=== PATIENT | female | born 1985 | race Caucasian/White ===

== ENCOUNTER → 2017-08-22 | Outpatient (REF) | payer OTHER ==
[~2017-08-22] MED LIST: AMOX-559 PO; BENZ200C15 PO; FLUT16SP19 NS; LEVO750T44 PO; MULT-885 PO
[2017-08-22 17:42] LABS: PLATELET COUNT, AUTOMATED 239 K/uL (150-450)
== END ==
LOC: ZZSENDIN 17:18
PROVIDERS: ATTEND Obstetrics & Gynecology
DX: Z36.89 Encounter for other specified antenatal screening (principal); Z3A.01 Less than 8 weeks gestation of pregnancy
CPT/HCPCS: 81001; 85007; 85027; 86592; 86762; 86850; 86900; 86901; 87088; 87340

== ENCOUNTER → 2017-11-10 | Outpatient (CLI) | payer OTHER ==
[~2017-11-10] MED LIST changes: +HYDR-6045 RC; +PREN-127 PO
--- NOTE | 2017-11-10 16:15 | RADIOLOGY IMAGING REPORT ---
FACILITY: [facility] - [place] PATIENT NAME: Sonal Bender : 1985 MR: [id number] V: [id number] EXAM DATE: ORDERING PHYSICIAN: KATHERYN GAONA TECHNOLOGIST: Location: [facility] Patient: Sonal Bender : 1985 Visit/Account:[id number] Date of Sevice: 11/10/2017 OB ANATOMICAL SURVEY HISTORY: Screening, twins COMPARISON: None. TECHNIQUE: Transabdominal imaging was performed for assessment of the twin fetus and maternal pelvic structures. Transvaginal imaging was not performed. FINDINGS: Intrauterine gestations: Two. Membrane Fetus A and B: Yes. Uterus: Gravid, otherwise unremarkable. Maternal adnexa/ovaries: Grossly unremarkable, ovaries not visualized.. Cervix: Grossly long and closed. FETUS A: Location/position: At the start of the examination fetus a was in transverse presentation with the fe marisel head towards the maternal right. At the end of the examination. Is a was in transverse presenta tion with the head towards the maternal left. heart rate: 144 bpm. Amniotic fluid volume: 15.5; MVP 4.4 cm. Placenta: Anterior. Gestational Parameters BPD: 4.25 cm, 76th percentile HC: 15.26 cm, 41st percentile AC: 12.28 cm, 35th percentile FL: 2.58 cm, 28th percentile Average ultrasound age (AUA): 18 weeks/ two days Estimated age based on LMP: 18 weeks/ two days LMP is 26 percentile Estimated weight (EFW): 217 grams +/- 32 grams EFW for LMP: Anatomic Survey: Intracranial structures, lips and palate, 4-chamber heart, ventricular outflow tracts, stomach, kidne ys, urinary bladder, spine, 3-vessel cord and cord insertion are unremarkable. Two upper and two lowe r extremities visualized. Only transverse images of the cervical thoracic lumbar spine and sacrum co uld be obtained at this time Fetus B: Location/position: Transverse presentation with the head on the maternal right. heart rate: 149 bpm. Amniotic fluid volume: Normal; MAGI 13.1 cm; MVP 3.4 cm. Placenta: Posterior. Gestational Parameters BPD: 3.93 cm, 36 percentile HC: 3.98 cm, 26 percentile AC: 12.15 cm, 31st percentile FL: 2.67 cm, 38th percentile Average ultrasound age (AUA): 18 weeks/ zero days Estimated age based on LMP: 18 weeks/ two days LMP is 27th percentile Estimated weight (EFW): 218 grams +/- 32 grams EFW for LMP: Anatomic Survey: Intracranial structures, lips and palate, 4-chamber heart, ventricular outflow tracts, stomach, kidne ys, urinary bladder, spine, 3-vessel cord and cord insertion are unremarkable. Two upper and two lowe r extremities visualized. IMPRESSION: Twin as detailed above. Estimated gestational age by measurements for twin A 18 weeks and two days and for twin B 18 weeks Report Dictated By: Shaina Guerin MD at 11/10/2017 4:00 PM Report E-Signed By: Shaina Guerin MD at 11/10/2017 4:11 PM ELIEN:EMERITA
== END ==
LOC: RAD 08:03
PROVIDERS: ATTEND Obstetrics & Gynecology
DX: Z02.9 Encounter for administrative examinations, unspecified (principal)
CPT/HCPCS: 76811

== ENCOUNTER → 2017-11-13 | Outpatient (CLI) | payer OTHER | LOC: RAD 09:00 | PROVIDERS: ATTEND Obstetrics & Gynecology | DX: Z02.9 Encounter for administrative examinations, unspecified (principal) ==

== ENCOUNTER → 2018-01-07 | Outpatient (CLI) | payer OTHER ==
[~2018-01-07] MED LIST changes: +DIPH0.5D12 IM
[2018-01-07 15:21] LABS: PLATELET COUNT, AUTOMATED 194 K/uL (150-450)
== END ==
LOC: LAB 08:05
PROVIDERS: ATTEND Obstetrics & Gynecology
DX: O09.90 Supervision of high risk pregnancy, unspecified, unspecified trimester (principal)
CPT/HCPCS: 36415; 82950; 85025

== ENCOUNTER → 2018-01-13 | Outpatient (CLI) | payer OTHER ==
[~2018-01-13] MED LIST changes: +BLOO-1511 MC; +BLOO-960 MC
== END ==
LOC: LAB 08:41
PROVIDERS: ATTEND Obstetrics & Gynecology
DX: O99.810 Abnormal glucose complicating pregnancy (principal)
CPT/HCPCS: 36415; 82951; 82952

== ENCOUNTER 2018-01-15 11:06 | Outpatient (RCR) | payer OTHER ==
[~2018-01-15] VITALS: Ht 162.6 cm; Wt 65.3 kg
--- NOTE | 2018-01-15 16:13 | Medical Nutrition Therapy ---
Nutrition Anthropometrics Height (Inches): 64 Weight (Pounds): 144 (120 pre- PG) Jim Nutrition Score: Jim Nutrition Risk Score: Dietary Referral Nutrition Risk Factors: Nutrition Risk Comment: Nutrition/Food History Breakfast: omelet, sausage Lunch: beef , mash pot, veg Dinner: ribs ,salad Snacks: usually didn't snack Nutritional Education Nutrition Education Topic: Diabetic Nutrition Learning Readiness: Eager, Interested Teaching Methods: Discussion, Handout, Demonstration Response to Teaching: Verbalize understanding Teaching Recipient: Patient Nutrition Counseling: Met with pt, gave education on What is gestational diabetes, effect on baby, potential for T2 post delivery. Provided nutrtion education including glycemic repsonse/index. Pt is PG with twins. Set up a meal plan recommending 30g CHO at breakfast, 30g CHO for morning, afternoon and night snacks, and 45-60g CHO for lunch and dinner. pt has not been snacking. Discussed importance of getting adequate kcal , especially with twins and stress importance that pt snack between meals. Taught pt how to use a glucometer,acceptable BG ranges, and track her BG levels. Nutrition Monitoring & Eval RD Patient Assessment Time: [address] Assessment Type: RD Education Nutritional Comment: Provided 60 minute diabetic education focusing on what is gest DM, nutrtion and glucometer teaching. Copies To Copies to: WYATT JOHNSON DO ; EDWARDO CERNA Jan 15, 2018 16:08
[2018-01-27] MEDS ORDERED: METF-450 PO (09:41)
[2018-02-03] MEDS ORDERED: NPH,100I SQ (15:53)
== END 2018-02-19 ==
LOC: DIET 11:06
PROVIDERS: ATTEND Student in an Organized Health Care Education/Training Program
DX: O24.419 Gestational diabetes mellitus in pregnancy, unspecified control (principal)
CPT/HCPCS: G0108 ×2

== ENCOUNTER → 2018-01-22 | Outpatient (CLI) | payer OTHER ==
[~2018-01-22] MED LIST changes: +METF-450 PO
--- NOTE | 2018-01-23 07:51 | RADIOLOGY IMAGING REPORT ---
FACILITY: [facility] - [place], [place] PATIENT NAME: Sonal Bender : 1985 MR: [id number] V: [id number] EXAM DATE: ORDERING PHYSICIAN: KATHERYN GAONA TECHNOLOGIST: Location: [facility] [place] Patient: Sonal Bender : 1985 Visit/Account:[id number] Date of Sevice: 01/22/2018 OB Ultrasound followup twins HISTORY: Evaluate growth and MAGI COMPARISON STUDIES: Ultrasound dated November 10, 2017. FINDINGS: There is a diamniotic with 2 intrauterine gestations. Twin A: Placenta: Posterior/fundal without previa presentation: Breech and to the maternal left heart rate: 136 bpm Largest amniotic fluid pocket 5.4 cm Gestational Parameters: BPD: 7.12 cm 28 weeks and 5 days HC: 25.92 cm 28 weeks and 2 days AC: 24.37 cm 28 weeks and 5 days FL: 5.12 cm 27 weeks and 3 days Average ultrasound age (AUA): 28 weeks and 2 days Estimated gestational age based on LMP datin weeks and 5 days MAGALY: 04/14/2018 based on today's ultrasound age Estimated weight (EFW): 1185 g +/-174 g EFW: 20th percentile for LMP dating Twin B: Placenta: Anterior/fundal without previa presentation: Vertex and to the maternal right heart rate: 152 bpm Largest amniotic fluid pocket 5.1 cm Gestational Parameters: BPD: 6.98 cm 28 weeks and 1 day HC: 25.77 cm 28 weeks and 1 day AC: 23.51 cm 27 weeks and 6 days FL: 5.20 cm 27 weeks and 6 days Average ultrasound age (AUA): 28 weeks and 0 days Estimated gestational age based on LMP datin weeks and 5 days MAGALY: 04/16/2018 based on today's ultrasound age Estimated weight (EFW): 1133 g +/-166 g EFW: 12th percentile for LMP dating IMPRESSION: 1. Twin with estimated ultrasound age of 28 weeks and 2 days for twin A (breech and to the maternal left) and estimated ultrasound age of 28 weeks and 0 days for twin B (vertex and to the mate rnal right). 2. Estimated weight for twin A is at the 20th percentile. 3. Estimated weight for twin B is at the 12th percentile. Report Dictated By: Janak Soria MD at 01/23/2018 7:41 AM Report E-Signed By: Janak Soria MD at 01/23/2018 7:48 AM WSN:[id number]
== END ==
LOC: RAD 07:58
PROVIDERS: ATTEND Student in an Organized Health Care Education/Training Program
DX: Z02.9 Encounter for administrative examinations, unspecified (principal)

== ENCOUNTER → 2018-02-19 | Outpatient (CLI) | payer OTHER ==
[~2018-02-19] MED LIST changes: +NPH,100I SQ
--- NOTE | 2018-02-19 15:53 | RADIOLOGY IMAGING REPORT ---
FACILITY: [facility] PATIENT NAME: Sonal Bender : 1985 MR: [id number] V: [id number] EXAM DATE: ORDERING PHYSICIAN: KATHERYN GAONA TECHNOLOGIST: Location: [facility] Patient: Sonal Bender : 1985 Visit/Account:[id number] Date of Sevice: 02/19/2018 [facility] OB LIMITED HISTORY: (, Growth check COMPARISON: January 22, 2018 TECHNIQUE: Transabdominal imaging was performed for assessment of the twin fetus and maternal pelvic structures. Transvaginal imaging was not performed. FINDINGS: Intrauterine gestations: Two. Membrane Fetus A and B: Yes. Uterus: Gravid, otherwise unremarkable. Maternal adnexa/ovaries: Grossly unremarkable, ovaries not visualized.. Cervix: Not evaluated. FETUS A: Location/position: Fetus a is in breech presentation with its spine to the maternal left and head and face pointing cephalad. heart rate: 163 bpm. Amniotic fluid volume: 14.96; MVP 5.62 cm. Placenta: Difficult to evaluate on provided images although the anterior placenta is likely associat ed with fetus a Gestational Parameters BPD: 7.97 cm, 22nd percentile HC: 29.02 cm, 5th percentile AC: 28.9 cm, 56th percentile FL: 6.09 cm, 14th percentile Average ultrasound age (AUA): 32 weeks/ two days Estimated age based on LMP: 32 weeks/ five days, Estimated weight (EFW): 1957 grams +/- 286 grams EFW for LMP: 30 percentile Anatomic Survey: Not performed Fetus B: Location/position: Breech presentation with the spine towards the maternal right with the head cephalad but face pointing down. heart rate: 139 bpm. Amniotic fluid volume: ; MAGI 18.83 cm; MVP 5.32 cm. Placenta: Difficult to evaluate on provided images although the posterior placenta is likely associa cristobal with fetus B Gestational Parameters BPD: 7.89 cm, 50th percentile HC: 29.13 cm, 70 percentile AC: 27.28 cm, 56th percentile FL: 6.42 cm, 14th percentile Average ultrasound age (AUA): 32 weeks/ one days Estimated age based on LMP: 32 weeks/ five days Estimated weight (EFW): 1884 grams +/- 275 grams EFW for LMP: 21st percentile Anatomic Survey: Not performed IMPRESSION: Twin with twin A in breech presentation with the spine towards the maternal left and the head and face are pointing cephalad. Estimated gestational age for twin A by measurements is 32 weeks and two days and estimated weight for twin A is 1957 g in the 30th percentile Twin B is in breech presentation with the spine towards the maternal right with a head cephalad but the face pointing down. The estimated gestational age by measurements for twin B is 32 weeks an d one day. Estimated weight for twin B is 1884 g in the 21st percentile Report Dictated By: Shaina Guerin MD at 02/19/2018 3:30 PM Report E-Signed By: Shaina Guerin MD at 02/19/2018 3:49 PM JACKLYN:EMERITA
== END ==
LOC: RAD 09:31
PROVIDERS: ATTEND Obstetrics & Gynecology
DX: Z02.9 Encounter for administrative examinations, unspecified (principal)
CPT/HCPCS: 76812

== ENCOUNTER → 2018-03-03 | Outpatient (CLI) | payer OTHER | LOC: LAB 16:39 | PROVIDERS: ATTEND Obstetrics & Gynecology | DX: Z34.93 Encounter for supervision of normal pregnancy, unspecified, third trimester (principal) | CPT/HCPCS: 87081 ==

== ENCOUNTER → 2018-03-09 | Outpatient (CLI) | payer OTHER ==
--- NOTE | 2018-03-09 16:40 | RADIOLOGY IMAGING REPORT ---
FACILITY: [facility] - [place] PATIENT NAME: Sonal Bender : 1985 MR: [id number] V: [id number] EXAM DATE: ORDERING PHYSICIAN: KATHERYN GAONA TECHNOLOGIST: Location: [facility] Patient: Sonal Bender : 1985 Visit/Account:[id number] Date of Sevice: 03/09/2018 OB >14 WEEKS EA ADTL GEST HISTORY: Follow-up twins COMPARISON: February 19, 2018 TECHNIQUE: Transabdominal imaging was performed for assessment of the twin fetus and maternal pelvic structures. Transvaginal imaging was not performed. FINDINGS: Intrauterine gestations: Two. Membrane Fetus A and B: Yes. Uterus: Gravid, otherwise unremarkable. Maternal adnexa/ovaries: Grossly unremarkable, ovaries not visualized.. Cervix: Not evaluated. FETUS A: Location/position: Breech. heart rate: 153 bpm. Amniotic fluid volume: 14.82 cm; MVP 5.05 cm. Placenta: Anterior. Gestational Parameters BPD: 8.28 cm, 8th percentile HC: 30.40 cm, 2nd percentile AC: 29.84 cm, 18th percentile FL: 6.95 cm, 53rd percentile Average ultrasound age (AUA): 34 weeks/ two days Estimated age based on LMP: 35 weeks/ two days Estimated weight (EFW): 2393 grams +/- 350 grams EFW for LMP: 22% Anatomic Survey: Anatomic survey not performed. Fetus B: Location/position: Breech. heart rate: 156 bpm. Amniotic fluid volume: Normal; MAGI 17.81 cm; MVP 9.94 cm. Placenta: Posterior. Gestational Parameters BPD: 8.08 cm, less than 2nd percentile HC: 31 cm, 9th percentile AC: 29.37 cm, 10th percentile FL: 6.42 cm, 5th percentile Average ultrasound age (AUA): 33 weeks/ four days Estimated age based on LMP: 35 weeks/ two days Estimated weight (EFW): 2174 grams +/- 318 grams EFW for LMP: 8% Anatomic Survey: Anatomic survey not performed IMPRESSION: Twin gestation, both in breech presentation. Estimated gestational age by measurements for twin A is 34 weeks and two days. Estimated weight for twin A is 2393 g, 22nd percentile Estimated gestational age for twin B by measurements 33 weeks and four days. Estimated weight for twin B 2174 g, 8th percentile Report Dictated By: Shaina Guerin MD at 03/09/2018 4:17 PM Report E-Signed By: Shaina Guerin MD at 03/09/2018 4:36 PM WSN:[email or web address]
== END ==
LOC: US 01:12
PROVIDERS: ATTEND Obstetrics & Gynecology
DX: Z02.9 Encounter for administrative examinations, unspecified (principal)
CPT/HCPCS: 76805; 76816

== ENCOUNTER → 2018-03-17 | Outpatient (CLI) | payer OTHER ==
[~2018-03-17] MED LIST changes: +BET6I IM ONLY
--- NOTE | 2018-03-17 21:45 | RADIOLOGY IMAGING REPORT ---
FACILITY: [facility] - [place] PATIENT NAME: Sonal Bender : 1985 MR: [id number] V: [id number] EXAM DATE: ORDERING PHYSICIAN: KATHERYN GAONA TECHNOLOGIST: Location: Patient: Sonal Bender : 1985 Visit/Account:[id number] Date of Sevice: 03/17/2018 OB LIMITED HISTORY: twin . Evaluate amniotic fluid Additional history: EGA by LMP 36 weeks and three days COMPARISON: Comparison ultrasound 03/09/2018 FINDINGS: Thick membrane the twins with two placentas. Dichorionic diamniotic twin . Twin A: Breech with heart rate 143 beats per minute. Placenta anterior. Amniotic fluid measur es 15.0 cm by four-quadrant measurement with deepest pocket 4.9 cm. This is very similar to the prev ious study. Twin B: Breech with heart rate 149 bpm. Placenta is posterior. Amniotic fluid measures 13.2 c m by four-quadrant measurement with deepest pocket 5.3 cm. This compares with previous four-quadrant measurement of 17.8 cm. IMPRESSION: Dichorionic diamniotic twin . Twins are in breech presentation. Amniotic fluid within norm al range for both twin A and twin B. Report Dictated By: Khang Veras MD at 03/17/2018 9:31 PM Report E-Signed By: Khang Veras MD at 03/17/2018 9:41 PM WSN:[id number]
== END ==
LOC: US 01:06
PROVIDERS: ATTEND Obstetrics & Gynecology
DX: O30.009 Twin pregnancy, unspecified number of placenta and unspecified number of amniotic sacs, unspecified trimester (principal); O09.90 Supervision of high risk pregnancy, unspecified, unspecified trimester; O24.419 Gestational diabetes mellitus in pregnancy, unspecified control
CPT/HCPCS: 76815

== ENCOUNTER 2018-03-24 05:01 | Inpatient (IN) | payer OTHER ==
[~2018-03-24] VITALS: Ht 162.6 cm; Wt 78.5 kg
[2018-03-24] VITALS (26 sets, daily range): BP systolic 108–144; BP diastolic 48–98
[2018-03-24] MEDS ORDERED: ceFAZolin(*) 2GM/D5W 50ML 50 ML IVPB ONE (05:02)
[2018-03-24] MEDS ORDERED: METOCLOPRAMIDE 10 MG/2 ML SDV IVP ONE (05:05)
[2018-03-24] MEDS ORDERED: FAMOTIDINE 20 MG/50 ML PREMIX IVPB ONE (05:05)
[2018-03-24] MEDS ORDERED: CITRIC ACID/SOD CITRATE 30 ML PO ONE (05:05)
[2018-03-24] MEDS: LR(*) 1000 ML BAG 1,000 ML IV SCH ×3 (05:49→18:18)
[2018-03-24 06:21] LABS: PLATELET COUNT, AUTOMATED 132 K/uL (150-450)
[2018-03-24] MEDS ORDERED: MORPHINE PF 5 MG/10 ML AMP ONE (06:56)
[2018-03-24] MEDS ORDERED: fentaNYL CITR 100 MCG/2 ML AMP ONE (06:56)
[2018-03-24] MEDS ORDERED: OXYTOCIN 10 UNIT/ML SDV ONE (06:56)
[2018-03-24] MEDS ORDERED: KETOROLAC 30 MG/ML VIAL ONE (06:56)
[2018-03-24] MEDS ORDERED: ONDANSETRON 4 MG/2 ML VIAL IVP ONE (07:05)
[2018-03-24] MEDS ORDERED: ONDANSETRON 4 MG/2 ML VIAL ONE (07:14)
--- NOTE | 2018-03-24 07:35 | History & Physical ---
History of Present Illness EDC per LMP: Apr 11, 2018 Estimated Gestational Age: 37.4 Chief Complaint Scheduled History of Present Illness 33yo at 37w4d presents for scheduled for di:di twins. She reports FM. Denies preeclampsia symptom. She is feeling well. No concerns. PNC by IMG. c/b di:di twins and GDMA2 (insulin 7U qHS). History Patient's Blood Type: A Positive Rubella Status: Immune Group B Strep Screen: Negative Obstetrical History: G1: SAB G2: Current Past Medical History: See PNR Allergies: Coded Allergies: codeine (Unverified Allergy, Intermediate, NAUSEA/VOMITING, 03/01/16) mold (Unverified Allergy, Unknown, 09/11/17) ragweed pollen (Unverified Allergy, Unknown, 09/11/17) Uncoded Allergies: dander (Allergy, Mild, 09/12/17) Social History: No T/E/D. . Family History: FH: diabetes mellitus FATHER PATERNAL GRANDFATHER, FH: hyperlipidemia MOTHER FH: hypertension FATHER FH: lung cancer MATERNAL GRANDMOTHER FH: melanoma MATERNAL GRANDFATHER, FH: pancreatic cancer PATERNAL GRANDFATHER, Med Rec Home Meds Active Scripts NPH, Human Insulin Isophane (Humulin N Kwikpen) 100 Unit/1 Ml Insuln.pen, 7 UNITS SQ DIRECTED, #1 EACH 1 Refill 7 units at dinner time each night Prov:KATHERYN GAONA MD 03/20/18 Metformin Hcl (METFORMIN HCL) 500 Mg Tablet, 1 TAB PO QPM, #30 TAB 2 Refills Prov:KATHERYN GAONA MD 01/27/18 Blood Sugar Diagnostic (GLUCOSE TEST STRIP) 1 Each Strip, 1 EACH MC QID, #50 STRIP 6 Refills Prov:KATHERYN GAONA MD 01/13/18 Blood-Glucose Meter (BLOOD GLUCOSE METER) 1 Each Each, EACH MC, #1 0 Refills Check FSBS QID Prov:KATHERYN GAONA MD 01/13/18 Hydrocortisone (ANUSOL-HC) 30 Gm Cream..g., 30 GM RC BID for 30 Days, #1 TUBE 1 Refill Prov:KATHERYN GAONA MD 10/24/17 Reported Medications Vits W-Ca,Fe,Fa(<1MG) ( VITAMINS) 1 Each Tablet, 1 EACH PO DAILY, TAB 09/12/17 Discontinued Scripts NPH, Human Insulin Isophane (Humulin N Kwikpen) 100 Unit/1 Ml Insuln.pen, 3 UNITS SQ DIRECTED, #1 EACH 1 Refill 3 units at dinner time each night Prov:KATHERYN GAONA MD 02/03/18 Review of Systems Constitutional: No Fever Neurological: No Syncope Eyes: No Vision Change Cardiovascular: No Chest Pain Respiratory: No Shortness of Breath, No Cough Gastrointestinal: No Nausea, No Vomiting, No Diarrhea Genitourinary: No Dysuria Musculoskeletal: No Pain Psychiatric: No Depression, No Anxiety Exam General Exam Vital Signs VS reviewed General Apperance: Alert/Awake/No Acute Distress Neuro: No Gross deficits Eyes: Normal Extraocular Movement & Vison Cardiovascular: Regular Rate and Rhythm Respiratory: No Respiratory Distress, Clear to Auscultation Abdomen: Gravid - Non-Tender Musculoskeletal: No Weakness/Pain Extremities: Edema (2+) Integumentary: Skin Intact without Lesions or Rash Psychological: Alert & Oriented X3, Appropriate Mood & Affect Fetus FHT Category: I Medical Decision Making Data Points Result Diagram: 03/24/18 0604 Pre-Admit Course Medical Record Review: Yes VTE Prophylasis: Adult Deep Vein Thrombosis/Pulmonary: No Pharmacological Contraindicati: Surgical Contraindication Mechanical Contraindications: Surgical Contraindication Assessment and Plan Problems: (1) Twin Assessment & Plan: 33yo at 37w4d presents for scheduled for di:di twins. Discussed R/B/A, babies are still breech/breech. Will proceed with . (2) Gestational diabetes mellitus (GDM) Assessment & Plan: Plan 2hr glucose at visit. Problem Qualifiers (1) Twin : Multiple gestation type: dichorionic and diamniotic Trimester: third trimester Qualified Codes: O30.043 - Twin , dichorionic/diamniotic, third trimester KATHERYN GAONA MD Mar 24, 2018 07:35
[2018-03-24] MEDS ORDERED: PHENYLEPHRINE/NS/PF 0.4MG/10ML ONE (08:01)
--- NOTE | 2018-03-24 08:33 | Post Operative Note ---
Operative Note - SENIOR MECHANICAL ESTIMATOR Operative Day Date: Mar 24, 2018 Physicians Surgeon: Deloris Utility Worker Film Processing: Judith Anesthesia: Spinal, Arely Corado Diagnosis Pre-Op Diagnosis: IUP at 37w4d with di:di twins in breech/breech position GDMA2 Post-Op Diagnosis: Same Delivery of viable twins: A) Female at 0750, 2372g, Agars 8/9 B) Female at 0752, 2074g, Agars 8/8 Procedure Procedure(s): PLTCD Fluids Fluids: IVF: 800cc UOP: 200cc Estimated Blood Loss: 800cc KATHERYN GAONA MD Mar 24, 2018 08:33
[2018-03-24] MEDS ORDERED: DLR(*) 1000 ML BAG 1,000 ML IV PRN (08:34)
[2018-03-24] MEDS ORDERED: OXYTOCIN 30 UNIT/LR 500 ML 500 ML IV PRN (08:34)
[2018-03-24] MEDS ORDERED: SIMETHICONE 80 MG CHEW CHEW PRN (08:35)
[2018-03-24] MEDS ORDERED: MAGNESIUM HYDROXIDE* 30ML UDCP PO PRN (08:35)
[2018-03-24] MEDS ORDERED: PROMETHAZINE 25 MG/ML 1 ML AMP IVP PRN (08:35)
[2018-03-24] MEDS ORDERED: LANOLIN OINT 7 GM TUBE TP PRN (08:35)
[2018-03-24] MEDS: FAMOTIDINE 20 MG TAB PO SCH ×2 (09:00→21:17)
[2018-03-24] MEDS: DOCUSATE CALCIUM 240 MG CAP PO SCH ×2 (09:00→21:00)
--- NOTE | 2018-03-24 09:07 | Anesthesia OB Pre-Anes Eval ---
History of Present Illness Anesthesia Start Date: Mar 24, 2018 Anesthesia Start Time: 07:25 OB Anesthesia Diagnosis: other (Twins w breech presentation) EDC: Apr 11, 2018 : 1 Para: 0 Pain Ratin Result Diagram: 03/24/18 0604 Height (Inches): 64 Weight (Pounds): 173 Past Medical History Medical History: no pertinent history, diabetes Surgical History: tonsillectomy Previous Anesthesia: general Attended Childbirth Classes?: Yes, Attended WET PROCESS MILLER HEAD Lecture Hx Anesthesia Reactions: No Hx Family Anesthesia Reaction: No Home Meds Active Scripts NPH, Human Insulin Isophane (Humulin N Kwikpen) 100 Unit/1 Ml Insuln.pen, 7 UNITS SQ DIRECTED, #1 EACH 1 Refill 7 units at dinner time each night Prov:KATHERYN GAONA MD 03/20/18 Metformin Hcl (METFORMIN HCL) 500 Mg Tablet, 1 TAB PO QPM, #30 TAB 2 Refills Prov:KATHERYN GAONA MD 01/27/18 Blood Sugar Diagnostic (GLUCOSE TEST STRIP) 1 Each Strip, 1 EACH MC QID, #50 STRIP 6 Refills Prov:KATHERYN GAONA MD 01/13/18 Blood-Glucose Meter (BLOOD GLUCOSE METER) 1 Each Each, EACH MC, #1 0 Refills Check FSBS QID Prov:KATHERYN GAONA MD 01/13/18 Hydrocortisone (ANUSOL-HC) 30 Gm Cream..g., 30 GM RC BID for 30 Days, #1 TUBE 1 Refill Prov:KATHERYN GAONA MD 10/24/17 Reported Medications Vits W-Ca,Fe,Fa(<1MG) ( VITAMINS) 1 Each Tablet, 1 EACH PO DAILY, TAB 09/12/17 Discontinued Scripts NPH, Human Insulin Isophane (Humulin N Kwikpen) 100 Unit/1 Ml Insuln.pen, 3 UNITS SQ DIRECTED, #1 EACH 1 Refill 3 units at dinner time each night Prov:KATHERYN GAONA MD 02/03/18 Allergies: Coded Allergies: codeine (Unverified Allergy, Intermediate, NAUSEA/VOMITING, 03/01/16) mold (Unverified Allergy, Unknown, 09/11/17) ragweed pollen (Unverified Allergy, Unknown, 09/11/17) Uncoded Allergies: dander (Allergy, Mild, 09/12/17) Anesthesia OB ROS Neurological: No migraines/headaches, No seizures, No neuropathy, No other ENT: Denies Tooth caps, Denies Loose teeth, Denies Chipped teeth, Denies Dentures, Denies Bridges, Denies Retainers, Denies Veneers, Denies Implants, Denies Tongue ring, Denies Other Pulmonary: No asthma, No smoker (pks/day/yrs), No other Airway Class: ll Cardiovascular ROS: No edema, No arrhythmia, No other GI ROS: NPO Last Solids Date: Mar 23, 2018 Last Solids Time: 23:59 ROS: No Herpes, No STD(s), No Liver Disease, No Renal Disease, No Other Endocrine ROS: gestational diabetes Musculoskeletal ROS: No low back pain, No low back injury, No scoliosis, No oth er ASA Classification: 2 Assessment and Plan Anesthesia Plan: SAB Anesthesia Stop Day: Mar 24, 2018 Anesthesia Stop Time: 08:28 EDWARDO CAMEJO CRNA Mar 24, 2018 09:07
[2018-03-24] MEDS ORDERED: NS 0.9% IRRIGATION 1000ML PLCT IR ONE (10:31)
--- NOTE | 2018-03-24 10:31 | OPERATIVE REPORT 1 ---
EVENT DATE: March 24, 2018 SURGEON: Keerthi Puentes MD ANESTHESIOLOGIST: ANESTHESIA: Spinal by Arely Corado CRNA JEWELRY DIPPER: Balwinder Wong DO PREOPERATIVE DIAGNOSES 1. Intrauterine at 37 weeks 4 days with dichorionic diamniotic twins in breech-breech position. 2. Gestational diabetes type A2, on insulin. POSTOPERATIVE DIAGNOSES 1. Intrauterine at 37 weeks 4 days with dichorionic diamniotic twins in breech-breech position. 2. Gestational diabetes type A2, on insulin. 3. Delivery of viable female twins. Twin A at 0750 hours, weighing 2372 grams, or 5 pounds 3.7 ounces with Apgars of 8 at one minute and 9 at five minutes. Twin B at 0752 hours, weighing 2042 grams, or 4 pounds 9.1 ounces with Apgars of 8 at one minute and 8 at five minutes. PROCEDURE PERFORMED Primary low transverse delivery. IV FLUIDS 800 cc. URINE OUTPUT 200 cc. ESTIMATED BLOOD LOSS 800 cc. INDICATIONS FOR PROCEDURE This patient is a 33-year-old 2, para 0-0-1-0 who presents at 37 weeks and 4 days for a scheduled delivery for Di-Di twins in the breech- breech presentation. Her was otherwise complicated by GDMA2, on insulin 7 units at bedtime well controlled with that dosage. At the time of presentation, she had category 1 tracings and was feeling well. She was, therefore, prepared for delivery. After discussing the risks, benefits and alternatives, the patient did elect to proceed. DESCRIPTION OF PROCEDURE The patient was properly identified and taken to the operating room. She was administered a spinal anesthetic and placed in the supine position. A Sy catheter was placed in the bladder to drain urine. She was then placed in the supine position with a leftward tilt and prepped and draped in the usual fashion for lower abdominal surgery. A Pfannenstiel incision was made after adequate anesthesia was confirmed. This incision was carried down to the level of the rectus fascia. The fascia was then nicked in the midline. The incision was extended in a blunt fashion. The rectus fascia was from the underlying rectus muscle in a blunt fashion in order to accommodate delivery of the twins. The peritoneum was then identified and entered bluntly without difficulty. This incision was then extended bluntly. A bladder blade was then placed, revealing normal appearing low uterine segment. The uterine incision was then made in a low transverse fashion, revealing intact membranes with clear fluid. The membranes of Baby A were ruptured at that time. The incision was extended in a cephalad caudad manner. Infant A was then delivered in a sweta breech presentation as the buttocks delivered followed by the legs. The was then delivered up to level of the axilla when the anterior arm was brushed across the chest and the was rotated in 180 degree fashion. The second arm was then rotated across the chest and the head delivered without difficulty. Baby A had spontaneous cry and spontaneous movement of all four extremities. The oropharynx and nasopharynx were bulb suctioned and the was dried and stimulated. After 35 seconds, the cord was clamped x2 and cut and the was passed to nursing personnel in good condition. Cord blood was obtained from placenta A and passed off the table. At this time, B was noted to be in the double footling breech presentation. Therefore, both feet were brought to the level of the uterine incision and the amniotic sac was ruptured with internal clear fluid. Infant B's legs were then delivered up to the level of the hips and then axilla without difficulty. The anterior arm was brushed across the anterior chest and the infant was rotated 180 degrees in order to allow delivery of the second arm without difficulty. B's vertex then delivered without difficulty. Baby B had spontaneous cry and spontaneous movement of all four extremities. The oropharynx and nasopharynx were bulb suctioned. The infant was dried and stimulated. After 30 seconds, the cord was clamped x2 and cut and Baby B was passed to nursing personnel in good condition. Cord blood was then obtained from placenta of Baby B and passed off the table. Both placentas were then delivered without difficulty and passed off the table. The uterus was exteriorized and cleared and cleared of any remaining clots, debris or placental tissue. The uterus did have excellent tone at this time and Pitocin had been started through the IV to help firm the uterus. The uterine incision was reapproximated using an 0 Vicryl, working from one apices to the next in a running locking fashion. A second imbricating layer of 0 Monocryl was then utilized to imbricate the incision. The incision was noted to be hemostatic. Bilateral tubes and ovaries appeared within normal limits. The uterus was then replaced into the abdominal cavity. Paracolic gutters were cleared of clots and debris. The uterine incision was again inspected and noted to be hemostatic. The peritoneum was then reapproximated using a 3-0 Monocryl followed by reapproximation of the muscle in the midline. Copious irrigation of the rectus muscles was performed and the muscle was noted to be hemostatic. The rectus fascia was then reapproximated using an 0 Vicryl, working from one apices to the next. Copious irrigation of subcutaneous tissue was performed with hemostasis with electrocautery. The subcutaneous tissue was reapproximated with 3-0 Monocryl followed by closure of the skin with Insorb georgette. A Primapore dressing was then placed followed by a pressure dressing. All sponge, needle and instrument counts were correct at the end of this procedure. The patient tolerated this procedure well and recovered in labor and delivery with her infant. ARON
[2018-03-24] MEDS: ONDANSETRON 4 MG/2 ML VIAL IV PRN ×2 (11:04→15:43)
[2018-03-24] MEDS ORDERED: KETOROLAC 30 MG/ML VIAL IVP SCH (13:00)
[2018-03-24] MEDS: KETOROLAC 30 MG/ML VIAL IVP SCH ×2 (14:24→21:17)
[2018-03-24] MEDS ORDERED: diphenhydrAMINE 50 MG/ML VIAL IVP ONE (17:30)
[2018-03-24] MEDS ORDERED: ACETAMINOPHEN(*)1000 MG/100 ML 100 ML IVPB ONE (17:30)
[2018-03-24] MEDS ORDERED: NS(*) 0.9% 500 ML BAG 500 ML IV PRN (17:35)
[2018-03-25] VITALS (9 sets, daily range): BP systolic 135–167; BP diastolic 81–97
[2018-03-25] MEDS: KETOROLAC 30 MG/ML VIAL IVP SCH (03:30)
[2018-03-25 06:16] LABS: PLATELET COUNT, AUTOMATED 140 K/uL (150-450)
--- NOTE | 2018-03-25 07:27 | OB/GYN Progress Note ---
OB Subjective Progress Notes Subjective Pt was lightheaded, weak and pale yesterday. She was transfused two units of blood and feels much better today. She has more energy. She has ambulated in the room. The woodson is out but she has not voided yet. Her baby, Giovana, is not feeding well yet. The other baby was transferred to [facility] for evaluation of possible seizure activity. OB Objective Physical Exam Vital Signs Date Time Temp Pulse Resp B/P (MAP) Pulse Ox O2 Delivery O2 Flow Rate FiO2 03/25/18 03:20 97.9 106 135/81 (99) 91 Room Air 03/24/18 23:24 14 03/24/18 19:10 0.5 Intake and Output 03/25/18 07:00 Intake Total 2950 ml Output Total 2775 ml Balance 175 ml Intake Oral 900 ml IV Total 1050 ml Blood Product 1000 ml Output Urine Total 2775 ml General Appearance: Alert/Awake/No Acute Distress Neurological: No Gross deficits Eyes: Normal Extraocular Movement & Vison Cardiovascular: Normal Rhythm & Peripheral Pulses, Regular Rate and Rhythm Respiratory: No Respiratory Distress, Clear to Auscultation Abdomen: Soft, Non-Tender, Non-Distended, Fundus Firm Incision: Clean, Dry, Intact Extremities: No Cyanosis,Clubbing or Edema, Edema (2+) Integumentary: Skin Intact without Lesions or Rash Psychological: Alert & Oriented X3, Appropriate Mood & Affect Result Diagram: 03/25/18 0554 Assessment and Plan Problems: (1) examination following delivery Assessment & Plan: POD#1 s/p PLTCD for twins. Baby A is having feeding issues and Baby B is at [facility] for evaluation of possible seizure activity. As of now, she is going to stay at [facility] because it sounds like Baby B might get discharged tomorrow. (2) Postoperative anemia Assessment & Plan: She started low at 9.6 and then dropped two points. She is now up to 10 after transfusion of 2units. Symptoms resolved. (3) Gestational diabetes mellitus (GDM) Assessment & Plan: Plan 2hr glucose at visit. (4) Twin Problem Qualifiers (1) Twin : Multiple gestation type: dichorionic and diamniotic Trimester: third trimeste r Qualified Codes: O30.043 - Twin , dichorionic/diamniotic, third tr KATHERYN Powell MD Mar 25, 2018 07:27
[2018-03-25] MEDS ORDERED: IBUP800T37 PO (08:29)
[2018-03-25] MEDS ORDERED: OXYC-865 PO (08:29)
[2018-03-25] MEDS: DOCUSATE CALCIUM 240 MG CAP PO SCH ×2 (08:41→21:50)
[2018-03-25] MEDS: IBUPROFEN 800 MG TAB PO SCH ×2 (08:42→18:12)
[2018-03-25] MEDS: FAMOTIDINE 20 MG TAB PO SCH ×2 (08:42→21:51)
--- NOTE | 2018-03-25 10:36 | Anesthesia Post Eval Note ---
Anesthesia Post Eval Note Vital Signs 03/24/18 03/25/18 19:10 03:20 Temp 97.9 Pulse 106 B/P (MAP) 135/81 (99) Pulse Ox 91 O2 Delivery Room Air O2 Flow Rate 0.5 Pt able to participate in Eval: Yes Cardiovascular Status: Satisfactory Respiratory Status: Satisfactory Pain Managment: Satisfactory PO Nausea/Vomiting: Satisfactory Temperature Management: Satisfactory Mental Status: Satisfactory, Alert, Oriented X3 Post-Op Hydration Status: Satisfactory, Tolerating PO Well, Voiding w/o Difficulty Anesthesia Type: EDWARDO WILLSON CRNA Mar 25, 2018 10:36
[2018-03-26] MEDS: IBUPROFEN 800 MG TAB PO SCH ×3 (01:54→17:53)
[2018-03-26 03:25] VITALS: BP 125/87
[2018-03-26] MEDS ORDERED: ONDANSETRON 4 MG TAB PO ONE (03:35)
[2018-03-26 07:15] VITALS: BP 141/91
[2018-03-26] MEDS ORDERED: MEASLES,MUMP,RUBELLA VAC 0.5ML SUBQ ONE (08:35)
[2018-03-26] MEDS ORDERED: INFLUENZA VIRUS VAC 0.5ML SYR IM ONLY ONE (08:35)
[2018-03-26] MEDS ORDERED: DIPHTH/TETANUS/ACEL. PERTUSSIS IM ONLY ONE (08:35)
--- NOTE | 2018-03-26 09:09 | OB/GYN Progress Note ---
OB Subjective Progress Notes Subjective Pt is doing much better. She got some sleep last night. The breast-feeding is improving, but she is still working on it. Her lochia is normal. Pain is controlled with Percocet. She is still having some nausea, which I suspect is due to the Percocet. No chest pain, shortness of breath or dizziness. OB Objective Physical Exam Vital Signs Date Time Temp Pulse Resp B/P (MAP) Pulse Ox O2 Delivery O2 Flow Rate FiO2 03/26/18 03:25 98.5 87 16 125/87 (100) 91 Room Air 03/24/18 19:10 0.5 Intake and Output 03/26/18 07:00 Intake Total 121 ml Balance 121 ml Intake Oral 121 ml # Voids 2 General Appearance: Alert/Awake/No Acute Distress Neurological: No Gross deficits Eyes: Normal Extraocular Movement & Vison Cardiovascular: Normal Rhythm & Peripheral Pulses, Regular Rate and Rhythm Respiratory: No Respiratory Distress, Clear to Auscultation Abdomen: Soft, Non-Tender, Non-Distended, Fundus Firm Incision: Clean, Dry, Intact Extremities: No Cyanosis,Clubbing or Edema, Edema (1+) Integumentary: Skin Intact without Lesions or Rash Psychological: Alert & Oriented X3, Appropriate Mood & Affect Result Diagram: 03/25/18 0554 Assessment and Plan Problems: (1) examination following delivery Assessment & Plan: POD#2 s/p PLTCD for twins. Baby A is feeling much better. Ba by B is still at [facility] but evaluation is reassuring. They will likely be discharged tomorrow from [facility]. The patient will stay another night, and likely be discharged tomorrow as well. (2) Postoperative anemia Assessment & Plan: She started low at 9.6 and then dropped two points. She is now up to 10 after transfusion of 2units. Symptoms resolved. (3) Gestational diabetes mellitus (GDM) Assessment & Plan: Plan 2hr glucose at visit. (4) Twin Problem Qualifiers (1) Twin : Multiple gestation type: dichorionic and diamniotic Trimester: third trimester Qualified Codes: O30.043 - Twin , dichorionic/diamniotic, third trimester KATHERYN GAONA MD Mar 26, 2018 09:08
[2018-03-26] MEDS: DOCUSATE CALCIUM 240 MG CAP PO SCH ×2 (09:58→22:28)
[2018-03-26] MEDS: FAMOTIDINE 20 MG TAB PO SCH ×2 (09:58→22:28)
[2018-03-26] MEDS: ONDANSETRON 4 MG ODT TABDP SL PRN ×2 (10:39→23:07)
[2018-03-26] MEDS ORDERED: ONDANSETRON 4 MG ODT TABDP SL ONE (10:42)
[2018-03-26 11:15] VITALS: BP 143/98
[2018-03-26 16:00] VITALS: BP 139/99
[2018-03-26 19:10] VITALS: BP 142/96
[2018-03-26 23:05] VITALS: BP 141/92
[2018-03-27] MEDS: ACETAMINOPHEN 325 MG TAB PO PRN ×2 (02:24→12:09)
[2018-03-27] MEDS: IBUPROFEN 800 MG TAB PO SCH ×3 (02:24→16:34)
[2018-03-27 02:50] VITALS: BP 136/90
[2018-03-27 08:15] VITALS: BP 143/99
[2018-03-27] MEDS: DOCUSATE CALCIUM 240 MG CAP PO SCH ×2 (09:27→21:30)
[2018-03-27] MEDS: FAMOTIDINE 20 MG TAB PO SCH ×2 (09:27→21:30)
[2018-03-27 12:05] VITALS: BP 142/100
--- NOTE | 2018-03-27 13:14 | OB/GYN Progress Note ---
OB Subjective Progress Notes Subjective Patient is doing well. Her pain is better controlled. She is not having much for nausea anymore, but is very anxious about going home. She denies any preeclampsia symptoms. Her lochia is normal. She is ambulating and voiding without difficulty. OB Objective Physical Exam Vital Signs Date Time Temp Pulse Resp B/P (MAP) Pulse Ox O2 Delivery O2 Flow Rate FiO2 03/27/18 12:05 99.0 98 18 142/100 (114) Room Air 03/26/18 19:10 90 03/24/18 19:10 0.5 Intake and Output 03/27/18 07:00 Intake Total 60 ml Output Total 1750 ml Balance -1690 ml Intake Oral 60 ml Output Urine Total 1750 ml # Voids 3 # Bowel Movements 1 General Appearance: Alert/Awake/No Acute Distress Neurological: No Gross deficits Eyes: Normal Extraocular Movement & Vison Cardiovascular: Normal Rhythm & Peripheral Pulses, Regular Rate and Rhythm Respiratory: No Respiratory Distress, Clear to Auscultation Abdomen: Soft, Non-Tender, Non-Distended, Fundus Firm Incision: Clean, Dry, Intact Extremities: No Cyanosis,Clubbing or Edema, Edema (1+) Integumentary: Skin Intact without Lesions or Rash Psychological: Alert & Oriented X3, Appropriate Mood & Affect Result Diagram: 03/26/18 1300 03/26/18 1300 Assessment and Plan Problems: (1) examination following delivery Assessment & Plan: POD#3 s/p PLTCD for twins. Baby B is still in March and will likely be discharged tomorrow. Baby A is doing better with feeding, but did need bili lights today. The patient's blood pressure has been elevated today. Although it is not in the severe range, I would like to keep her inpatient one additional night to monitor her blood pressures. I suspect it is likely due to more to anxiety, but wanted to monitor to be certain. (2) Postoperative anemia Assessment & Plan: She started low at 9.6 and then dropped two points. She is now up to 10 after transfusion of 2units. Symptoms resolved. (3) Gestational diabetes mellitus (GDM) Assessment & Plan: Plan 2hr glucose at visit. (4) Twin Problem Qualifiers (1) Twin : Multiple gestation type: dichorionic and diamniotic Trimester: third trimester Qualified Codes: O30.043 - Twin , dichorionic/diamniotic, third trimester KATHERYN GAONA MD Mar 27, 2018 13:14
[2018-03-27] MEDS ORDERED: WATER STERILE FOR IRRIG 1000ML IR ONE (15:09)
[2018-03-27 16:35] VITALS: BP 139/94
[2018-03-27 19:47] VITALS: BP_SYST 138; BP_SYST 149; BP_DIAS 105; BP_DIAS 108
[2018-03-28] MEDS: IBUPROFEN 800 MG TAB PO SCH ×3 (00:40→17:29)
[2018-03-28 00:46] VITALS: BP 148/96
[2018-03-28 09:50] VITALS: BP 160/108
--- NOTE | 2018-03-28 10:09 | OB/GYN Progress Note ---
OB Subjective Progress Notes Subjective Feeling tired this morning. Pt has been trying to avoid Percocet today to see if she can tolerate pain with out the side effects of percocet. Ambulatory. Voiding with out any difficulty. Tolerating regular diet. /pumping. GI: NEG Nausea, NEG Vomiting, NEG Flatus, NEG Bowel Movement : Voiding Well, Vaginal Bleeding Pain: Mild Neurological: No Headache, No Other Eyes: No Visual Disturbances OB Objective Physical Exam Vital Signs Date Time Temp Pulse Resp B/P (MAP) Pulse Ox O2 Delivery O2 Flow Rate FiO2 03/28/18 03:19 99.2 88 18 92 03/28/18 00:46 148/96 (113) 03/27/18 19:47 Room Air 03/24/18 19:10 0.5 Intake and Output 03/28/18 07:00 Intake Total 240 ml Balance 240 ml Intake Oral 240 ml General Appearance: Alert/Awake/No Acute Distress Neurological: No Gross deficits Eyes: Normal Extraocular Movement & Vison Cardiovascular: Normal Rhythm & Peripheral Pulses, Regular Rate and Rhythm Respiratory: No Respiratory Distress, Clear to Auscultation Abdomen: Soft, Non-Tender, Non-Distended, Fundus Firm Incision: Clean, Dry, Intact Extremities: No Cyanosis,Clubbing or Edema, Edema (1+) Integumentary: Skin Intact without Lesions or Rash Psychological: Alert & Oriented X3, Appropriate Mood & Affect Result Diagram: 03/26/18 1300 03/26/18 1300 Assessment and Plan [employer] Assessment: Stable [employer] Plan: Discharge Home Today Problems: (1) examination following delivery Assessment & Plan: Doing good POD #4. Still having some elevated blood pressures but no symptoms. Pre-eclampsia negative. Pt has started to diurese yet, I would expect pressures to decrease once. Plan for BP check early next week. If pressures remain super elevated will hold dc and start anti hypertensive therapy. (2) Postoperative anemia (3) Gestational diabetes mellitus (GDM) (4) Twin Problem Qualifiers (1) Twin : Multiple gestation type: dichorionic and diamniotic Trimester: third trimester Qualified Codes: O30.043 - Twin , dichorionic/diamniotic, third trimester WYATT JOHNSON DO Mar 28, 2018 10:09
--- NOTE | 2018-03-28 10:11 | OB/GYN Discharge Summary ---
Discharge Summary Reason for Hosp/Final Diag: (1) examination following delivery Hospital Course & Plan: Pt presented for a scheduled c'section secondary to twins breech. Pt underwent procedure with out any difficulty. Did have elevated BP and was monitored for a few extra days post operatively. Pt was discharged home on POD # 4. (2) Postoperative anemia (3) Gestational diabetes mellitus (GDM) (4) Twin Lates Vital Signs Vital Signs Date Time Temp Pulse Resp B/P (MAP) Pulse Ox O2 Delivery O2 Flow Rate FiO2 03/28/18 03:19 99.2 88 18 92 03/28/18 00:46 148/96 (113) 03/27/18 19:47 Room Air 03/24/18 19:10 0.5 Weight (Pounds): 173 Result Diagram: 03/26/18 1300 03/26/18 1300 Condition: Improved Discharge: Home Home Meds Active Scripts Oxycodone Hcl/Acetaminophen (PERCOCET 5-325 MG TABLET) 1 Each Tablet, 1 TAB PO Q4-6H PRN for pain, #30 TAB 0 Refills Prov:KATHERYN PUENTES MD 03/25/18 NPH, Human Insulin Isophane (Humulin N Kwikpen) 100 Unit/1 Ml Insuln.pen, 7 UNITS SQ DIRECTED, #1 EACH 1 Refill 7 units at dinner time each night Prov:KATHERYN PUENTES MD 03/20/18 Blood Sugar Diagnostic (GLUCOSE TEST STRIP) 1 Each Strip, 1 EACH MC QID, #50 STRIP 6 Refills Prov:KATHERYN PUENTES MD 01/13/18 Blood-Glucose Meter (BLOOD GLUCOSE METER) 1 Each Each, EACH MC, #1 0 Refills Check FSBS QID Prov:KATHERYN PUENTES MD 01/13/18 Hydrocortisone (ANUSOL-HC) 30 Gm Cream..g., 30 GM RC BID for 30 Days, #1 TUBE 1 Refill Prov:KATHERYN PUENTES MD 10/24/17 Reported Medications Vits W-Ca,Fe,Fa(<1MG) ( VITAMINS) 1 Each Tablet, 1 EACH PO DAILY, TAB 09/12/17 Discontinued Scripts Metformin Hcl (METFORMIN HCL) 500 Mg Tablet, 1 TAB PO QPM, #30 TAB 2 Refills Prov:KATHERYN PUENTES MD 01/27/18 Follow up with: [facility] [phone], Dr. Puentes [phone] Follow up in: 3-4 days Discharge Diet: As Tolerates, Resume Prior Admit Diet Discharge Activity: As Tolerates, Pelvic Rest Problem Qualifiers (1) Twin : Multiple gestation type: dichorionic and diamniotic Trimester: third trimester Qualified Codes: O30.043 - Twin , dichorionic/diamniotic, third trimester WYATT JOHNSON DO Mar 28, 2018 10:11
[2018-03-28] MEDS: DOCUSATE CALCIUM 240 MG CAP PO SCH (11:02)
[2018-03-28] MEDS: FAMOTIDINE 20 MG TAB PO SCH (11:02)
[2018-03-28 14:00] VITALS: BP 159/100
[2018-03-28] MEDS ORDERED: oxyCODONE/ACETAMIN 5/325MG TH 2 TAB/BOTTLE PO ONE (17:05)
[2018-03-30] MEDS ORDERED: NIFE30TA92 PO (15:08)
== END 2018-03-28 18:25 | disposition home or self-care (01) | DRG 787 ==
LOC: OB 05:01
PROVIDERS: ADMIT Obstetrics & Gynecology; ATTEND Obstetrics & Gynecology
PROC: 30233N1 Transfusion of Nonautologous Red Blood Cells into Peripheral Vein, Percutaneous Approach (ICD-10-PCS; 2018-03-24)
PROC: 10D00Z1 Extraction of Products of Conception, Low, Open Approach (ICD-10-PCS; principal; 2018-03-24 07:30)
DX: O32.1XX1 Maternal care for breech presentation, fetus 1 (principal); D62 Acute posthemorrhagic anemia; O32.8XX2 Maternal care for other malpresentation of fetus, fetus 2; O30.043 Twin pregnancy, dichorionic/diamniotic, third trimester; Z3A.37 37 weeks gestation of pregnancy; Z37.2 Twins, both liveborn; O24.424 Gestational diabetes mellitus in childbirth, insulin controlled; Z3A.00 Weeks of gestation of pregnancy not specified; O99.02 Anemia complicating childbirth; R03.0 Elevated blood-pressure reading, without diagnosis of hypertension; O75.89 Other specified complications of labor and delivery
CPT/HCPCS: 36415; 82040; 82247; 82310; 82374; 82435; 82565; 82570; 82947; 84075; 84132; 84155; 84156; 84295; 84450; 84460; 84520; 85025; 85027; 86703; 86850; 86900; 86901; 86920; J0131; J1200; J1885; J2270; J2370; J2405; J2590; J2765; J3010; J3490; J7120; P9016; S0119